=== PATIENT | female | born 1970 | race Caucasian/White ===

== ENCOUNTER 2017-08-24 16:27 | Emergency (ER) | payer BC ==
[~2017-08-24] VITALS: Ht 162.6 cm; Wt 72.1 kg
[~2017-08-24 16:27] MED LIST: COLACE50 MG PO; NOHOMEMEDS
[2017-08-24 16:52] LABS: MCHC 35.3 G/DL (30.0-36.0); MCV 90.7 FL (83-99); PLATELET COUNT 194 K/uL (156-360); RBC DIS.WIDTH-CV 11.5 % (11.8-14.6); RBC DIS.WIDTH-SD 38.2 % (39-53); RED BLOOD COUNT 3.75 M/uL (3.80-5.20); WHITE BLOOD COUNT 4.3 K/uL (4.1-10.2)
[2017-08-24 17:04] LABS: ALBUMIN 4.3 g/dL (3.2-4.8); CHLORIDE 108 mEq/L (99-109); SODIUM 142 mEq/L (136-147)
[2017-08-24 17:06] LABS: GLUCOSE 101 mg/dL (70-99); TOTAL PROTEIN 6.8 g/dL (6.4-8.3)
[2017-08-24 17:08] LABS: TOTAL BILIRUBIN 0.3 mg/dL (0.0-1.0)
[2017-08-24 17:10] LABS: ALKALINE PHOSPHATASE 85 IU/L (3-129); CREATININE 0.9 mg/dL (0.6-1.3); GFR ESTIMATE (CALCULATED) > 59 mL/min/
[2017-08-24 17:11] LABS: UREA NITROGEN (BUN) 18 mg/dL (9-23)
[2017-08-24 17:12] LABS: AST (GOT) 18 IU/L (2-34)
[2017-08-24 17:13] LABS: APPEARANCE CLOUDY ((CLEAR)); BILIRUBIN NEGATIVE; BLOOD LARGE; COLOR YELLOW ((YELLOW)); GLUCOSE (STRIP) NEGATIVE; KETONES NEGATIVE; LEUKOCYTES LARGE; NITRITE NEGATIVE; PROTEIN (STRIP) 100; SPECIFIC GRAVITY 1.031 (1.000-1.030); UROBILINOGEN 0.2 MG/DL (0.2-1.0)
[2017-08-24 17:13] LABS: ALT (GPT) 22 IU/L (3-49)
[2017-08-24 18:05] LABS: QUANTITATIVE HCG < 4.0 MIU/ML
[2017-08-24 18:27] LABS: RED BLOOD CELLS TNTC /HPF (0-5); WHITE BLOOD CELLS TNTC /HPF (0-5)
[2017-08-24 18:28] LABS: BACTERIA RARE /HPF; EPITHELIAL CELLS RARE /HPF; MUCUS RARE /LPF; UCUL ADDED? YES
[2017-08-24 18:29] LABS: CALCIUM OXALATE CRYSTALS 3+ /HPF
[2017-08-24] MEDS ORDERED: TORADOL10 MG PO (21:44)
[2017-08-24] MEDS ORDERED: PYRIDIUM200 MG PO (21:44)
[2017-08-24 21:54] VITALS: BP 133/85
== END 2017-08-24 22:11 | disposition home or self-care (01) ==
LOC: EME 16:27
DX: R30.0 Dysuria (principal); R31.9 Hematuria, unspecified; K80.20 Calculus of gallbladder without cholecystitis without obstruction; Z87.448 Personal history of other diseases of urinary system; Z92.3 Personal history of irradiation; Z85.43 Personal history of malignant neoplasm of ovary; Z85.048 Personal history of other malignant neoplasm of rectum, rectosigmoid junction, and anus
CPT/HCPCS: 71046; 74177; 80053; 81003; 84702; 85027; 87086; 99281; 99284; J1885; J7120